=== PATIENT | female | born 1965 | race Caucasian/White ===

== ENCOUNTER → 2024-03-30 05:54 | Day surgery (SDC) | payer OTHER, SELFPAY | LOC: GI 05:54 | PROVIDERS: ATTENDING PHYSICIAN Internal Medicine Gastroenterology | DX: Z12.11 Encounter for screening for malignant neoplasm of colon (principal); K62.1 Rectal polyp; R63.5 Abnormal weight gain | CPT/HCPCS: 45385; 45380; 88305 ==

== ENCOUNTER 2024-09-10 20:17 | Emergency (ER) | payer OTHER, SELFPAY ==
[2024-09-10] VITALS (11 sets, daily range): BP systolic 158–221; BP diastolic 69–126; BMI 25.1
--- NOTE | 2024-09-10 21:31 | ED.GENMED ---
History of Present Illness
General
Chief Complaint: Blood Pressure Problem
Source: patient
Exam Limitations: none
Time Seen by Provider: 09/10/24 21:04
History of Present Illness
History of Present Illness:
This is a 59 year old female that comes in with c/o headache and hypertension. State that she has had a headache for the past 3-4 days. State that she checked her BP at home and it was 188/70-90's. States that tonight she had a headache across her
forehead and her BP was again elevated. State that at 7:30pm tonight it was 201/91. States that she was on the Treadmill tonight. States that for the past 2 years she has had this left sided chest discomfort that comes and goes. States that this
cam back in the summer and she had an US that was normal. States that tonight her jaw hurt with the Headache and high BP so she came in. Denies any fever, chills, chest pain, SOB, abd pain, nausea, vomiting, diarrhea, dizziness, urinary burning.
Past History
Past History
ED Past Medical History: HTN and Hypercholesterolemia
ED Past Surgical History: Appendectomy
Social History
Tobacco: Non-smoker
Alcohol: None
Personal:
Living: with family
Employment: Employed
Review of Systems
Review of Systems
All Other Systems: ROS reviewed and negative except as documented in HPI and ROS
Constitutional: Reports no symptoms; Denies fever or chills
EENT: Reports no symptoms
Respiratory: Reports no symptoms; Denies cough or trouble breathing
Cardiac: Reports no symptoms; Denies chest pain
ABD/GI: Reports no symptoms; Denies abdominal pain, nausea, vomiting or diarrhea
: Reports no symptoms
Musculoskeletal: Reports no symptoms
Skin: Reports no symptoms
Neurological: Reports headache; Denies dizzy
Psychiatric: Reports no symptoms
Phy Exam
General Physical Exam
General Presentation: well appearing and no apparent distress
General age: appears stated age
General Skin: warm and dry
General Habitus: normal
General Mental: alert
General Hydration: dry mucous membranes
ENT Exam
ENT Exam: TM's normal, pharynx normal and neck supple
Eye Exam
Eye Exam: EOMI
Cardiovascular Exam
Cardiovascular Exam: no edema, no murmur, normal peripheral pulses and tachycardia
Pulmonary Exam
Pulmonary Exam: lungs clear, no respiratory distress, no rales, chest non tender, no crackles, no rhonchi, no wheezing and no cough
Gastrointestinal Exam
Gastrointestinal Exam: normal bowel sounds, non tender, soft, no organomegaly, no pulsatile mass and non distended
Musculoskeletal Exam
Musculoskeletal Exam: full ROM and no edema
Skin Exam
Skin Exam: normal color, warm/dry, no rash and no petechia
Psychiatric Exam
Psychiatric Exam: normal mood/affect
Course
Orders/Labs/Results
Orders:
Orders
09/10/24 20:25
ECG [Electrocardiogram (*1)] Urgent
Reason for Study: Other
Other Reason for Exam: jaw pain
EKG- Treatment ONCE
09/10/24 20:[address] [CT Head W/o Iv Contrast] Urgent
Comment:
Reason For Exam: Headache,jaw pain and L chest pain.
09/10/24 21:30
Acetaminophen [Tylenol] 1,000 mg PO NOW STA
HydrALAZINE [Apresoline] 5 mg IV NOW STA
Lisinopril [Zestril] 5 mg PO NOW STA
09/10/24 21:31
Complete Blood Count/With Diff Urgent
Comprehensive Metabolic Panel Urgent
Troponin I Urgent
Abnormal Lab Results
09/10/24
21:31
RBC 4.07 L 10^6/uL
(4.20-5.40)
Hct 36.4 L %
(37.0-47.0)
MPV 10.5 H fL
(7.4-10.4)
BUN 29 H mg/dl
(7-17)
Glucose 209 H mg/dl
(70-99)
ALT 43 H U/L
(0-35)
Alkaline Phosphatase 37 L U/L
(38-126)
09/10/24 21:31
09/10/24 21:31
CBC normal
Vital Signs
Initial and Last Documented VS:
Initial Vital Signs
Temp Pulse Resp BP Pulse Ox
98.5 F 112 16 218/118 99
09/10/24 20:21 09/10/24 20:21 09/10/24 20:21 09/10/24 20:21 09/10/24 20:21
Last Documented Vital Signs
Temp Pulse Resp BP Pulse Ox
98.5 F 94 11 178/82 97
09/10/24 20:21 09/10/24 22:45 09/10/24 22:45 09/10/24 22:40 09/10/24 22:45
MDM/Problems Addressed
Differential Diagnosis Includes:
Hypertension. Headache.
MDM/Problems Addressed:
This is a 59 year old female that comes in with c/o headache and Hypertension.
Will check labs, CT head and medicate for Hypertension.
Back into see patient. Patient states that she still has a headache but it has moved to the temporal area. Explained that her BP has come down to 173/78. Explained that it is not advised to drop the BP to fast. Will place patient on Lisinopril
daily. Patient to follow up with the family doctor. Use Tylenol 1000mg every 6 hours for pain and can alternate with Ibuprofen 600mg every 6 hours. Patient to return with any concerns.
Chronic conditions affecting care: HTN
Acute Exacerbation and/or Progression of Chronic Illness: HTN
*Radiology
Radiology exam reviewed: radiology read reviewed (CT head-NOrmal)
*Pulse Oximetry
Patient hypoxic: no
*EKG
Interpreted by ED Provider?: Yes
Heart Rate: 113
Rate: tachycardiac
Rhythm: sinus
[place]: normal axis
Interval: normal interval
QRS Pattern: normal QRS
Ischemia: no ischemia
*Industrial Relations Worker Interpretation
Rate: tachycardiac
Heart Rate: 111
Rhythm: sinus tachycardia
*Critical Care Note
Total Time (30-74mins, 75-104mins- exclusive of procedures): Not Applicable
ED Attending Note
-
Portions of this chart may have been created with voice recognition software.� Occasional wrong word or��sound alike� substitutions may have occurred due to the inherent limitations of voice recognition software.
Discharge Plan
Departure
Patient Disposition: Home (Routine Discharge)
Date of Disposition: 09/10/24
Time of Disposition: 23:20
Patient with high blood pressure during this ER visit?: Yes
Condition: Good
Covid-19: Not Applicable
Discharge Problem:
Hypertension, Headache
Instructions: High Blood Pressure (DC), Headaches in adults, BLOOD PRESSURE
Prescriptions:
New
lisinopril 10 mg tablet
10 mg PO DAILY Qty: 30 0RF
Referrals:
Nickolas Farias, [Family Provider] - Follow up in 2-3 days
Activity Restrictions/Additional Instructions:
As discussed, your blood work shows Dehydration. Please increase your water intake to 8-8oz glasses daily. Your blood sugar is elevated and this needs to be recheck by your family doctor. Your CT of the head is normal. You have been started on
Lisinopril for Hypertension. A prescription has been sent to your pharmacy. Please take as directed. Follow up with the family doctor in the next 2-3 days for recheck. Please take your blood pressure in the morning and then again at night. Please
sit for 5 min with feet flat on the floor and arm level with the heart before taking your blood pressure. You may use Tylenol 1000mg every 6 hours for headache pain. IF YOU HAVE ANY OTHER CONCERNS PLEASE RETURN TO THE EMERGENCY ROOM
Interventions
Interventions:
*Risk Screen - Suicide Last Done: 09/10/24 20:21
*General Assessment Last Done: 09/10/24 20:21
*Neglect/Abuse Screening Last Done: 09/10/24 20:21
ED- Fall Risk Assessment Last Done: 09/10/24 20:21
*ED COVID-19 Vaccine History Last Done: 09/10/24 20:21
ED- Cardiac Assessment Last Done: 09/10/24 21:31
ED- Neurological Assessment Last Done: 09/10/24 21:31
ED- Pulmonary Assessment Last Done: 09/10/24 21:31
Discharge Date and Time
Print Language: PERUVIAN
[2024-09-10] MEDS: ZESTRIL 5 MG PO (21:35)
[2024-09-10] MEDS: APRESOLINE 5 MG IV (21:36)
[2024-09-10] MEDS: TYLENOL 1000 MG PO (21:36)
[2024-09-10 21:43] LABS: % Basophils 0.3 % (0-2); % Eosinophils 0.5 % (0-6); % Immature Granulocytes 0.3 % (0-0.5); % Lymphocytes 27.6 % (20.5-51.1); % Monocytes 6.9 % (1.7-9.3); % Neutrophils 64.4 % (42.2-75.2); Absolute Lymphocytes 1.7 10^3/uL (1.2-3.4); Absolute Monocytes 0.4 10^3/uL (0.1-0.6); Hematocrit 36.4 % (37.0-47.0); Mean Corpuscular Hgb 29.5 pg (27.0-31.0); Mean Corpuscular Volume 89.4 fL (81.0-99.0); Mean Platelet Volume 10.5 fL (7.4-10.4); Nucleated Red Blood Cells % 0 %; Platelet Count 209 10^3/uL (130-400); Red Blood Cell Count 4.07 10^6/uL (4.20-5.40); Red Cell Dist. Width 12.6 % (11.5-14.5); White Blood Cell Count 6.2 10^3/uL (4.8-10.8)
[2024-09-10 22:07] LABS: ALT (SGPT) 43 U/L (0-35); AST (SGOT) 33 U/L (14-36); Albumin 4.6 g/dl (3.5-5.0); Alkaline Phosphatase 37 U/L (38-126); Blood Urea Nitrogen 29 mg/dl (7-17); Calcium 9.2 mg/dl (8.4-10.2); Carbon Dioxide 28 mmol/L (22-30); Chloride 103 mmol/L (98-107); Estimated Creatinine Clearance 76 ml/min; Glucose 209 mg/dl (70-99); Potassium 3.6 mmol/L (3.5-5.1); Sodium 140 mmol/L (135-145); Total Bilirubin 0.2 mg/dl (0.2-1.3); Total Protein 7.1 g/dl (6.3-8.2); Troponin I < 0.012 ng/ml; eGFR > 60.00
== END 2024-09-10 23:50 | disposition home or self-care (01) ==
LOC: EMR 20:17
PROVIDERS: Emergency Medicine; EMERGENCY PHYSICIAN Emergency Medicine; FAMILY PHYSICIAN Family Medicine
DX: R51.9 Headache, unspecified (principal); R68.84 Jaw pain; I10 Essential (primary) hypertension; R07.89 Other chest pain; E78.00 Pure hypercholesterolemia, unspecified; Z88.2 Allergy status to sulfonamides
CPT/HCPCS: 99284; 96374; 70450; 80053; 84484; 85025; 93005

== ENCOUNTER 2024-09-13 21:10 | Emergency (ER) | payer OTHER, SELFPAY ==
[2024-09-13 21:19] VITALS: BP 183/108
[2024-09-13 23:38] VITALS: BP 198/105
--- NOTE | 2024-09-14 00:53 | ED.GENMED ---
History of Present Illness
General
Chief Complaint: Blood Pressure Problem
Source: patient
Exam Limitations: none
Time Seen by Provider: 09/14/24 00:19
History of Present Illness
History of Present Illness:
This is a 59 year old female that comes in with c/o hypertension. Patient was seen here on 09/10/24 with c/o hypertension and started on Lisinopril 10mg. State that she went to see the PCP the next days. Patient had also had a headache that moved
into the temporal area so further blood work was done that she says was normal and she was started on a steroid. States that she has been taking Tylenol 1000mg during the day. States that today she was at a and it was a long day. Tonight she
checked her BP and it was 200/ something and she got upset. States that she took a Second Lisinopril 10mg tonight. Denies any fever, chills, chest pain, SOB, abd pain, nausea, vomiting, diarrhea, dizziness, urinary burning.
Past History
Past History
ED Past Medical History: HTN and Hypercholesterolemia; Negative Asthma or NIDDM
ED Past Surgical History: Appendectomy
Social History
Tobacco: Non-smoker
Alcohol: None
Personal:
Living: with family
Employment: Employed
Review of Systems
Review of Systems
All Other Systems: ROS reviewed and negative except as documented in HPI and ROS
Constitutional: Reports no symptoms; Denies fever or chills
EENT: Reports no symptoms
Respiratory: Reports no symptoms; Denies cough or trouble breathing
Cardiac: Reports no symptoms; Denies chest pain
ABD/GI: Reports no symptoms; Denies abdominal pain, nausea, vomiting or diarrhea
: Reports no symptoms; Denies dysuria, frequency or urgency
Musculoskeletal: Reports no symptoms
Skin: Reports no symptoms
Neurological: Reports headache; Denies dizzy
Psychiatric: Reports no symptoms
Phy Exam
General Physical Exam
General Presentation: well appearing and no apparent distress
General age: appears stated age
General Skin: warm and dry
General Habitus: normal
General Mental: alert
General Hydration: appears well hydrated
ENT Exam
ENT Exam: TM's normal, pharynx normal and neck supple
Eye Exam
Eye Exam: EOMI
Cardiovascular Exam
Cardiovascular Exam: regular rate/rhythm, no edema, no murmur and normal peripheral pulses
Pulmonary Exam
Pulmonary Exam: lungs clear, no respiratory distress, no rales, chest non tender, no crackles, no rhonchi, no wheezing and no cough
Gastrointestinal Exam
Gastrointestinal Exam: normal bowel sounds, non tender, soft, no organomegaly, no pulsatile mass and non distended
Musculoskeletal Exam
Musculoskeletal Exam: full ROM and no edema
Skin Exam
Skin Exam: normal color, warm/dry, no rash and no petechia
Course
Orders/Labs/Results
Orders:
Orders
09/14/24 00:53
HydrALAZINE [Apresoline] 5 mg IV NOW STA
09/14/24 01:12
Complete Blood Count/With Diff Urgent
Comprehensive Metabolic Panel Urgent
09/14/24 01:16
Lorazepam [Ativan] 1 mg .ROUTE .STK-MED ONE
09/14/24 01:18
Lorazepam [Ativan] 1 mg PO NOW STA
Abnormal Lab Results
09/14/24
01:12
Absolute Lymphs (auto) 0.8 L 10^3/uL
(1.2-3.4)
Neutrophils % 85.5 H %
(42.2-75.2)
Lymphocytes % 12.2 L %
(20.5-51.1)
Monocytes % 0.9 L %
(1.7-9.3)
BUN 18 H mg/dl
(7-17)
Glucose 158 H mg/dl
(70-99)
Total Bilirubin 0.1 L mg/dl
(0.2-1.3)
ALT 44 H U/L
(0-35)
09/14/24 01:12
09/14/24 01:12
Very slight Dehydration. Hyperglycemia. Total luigi slightly low. ALT mildly elevated.
Vital Signs
Initial and Last Documented VS:
Initial Vital Signs
Temp Pulse Resp BP Pulse Ox
98.7 F 99 16 183/108 97
09/13/24 21:19 09/13/24 21:19 09/13/24 21:19 09/13/24 21:19 09/13/24 21:19
Last Documented Vital Signs
Temp Pulse Resp BP Pulse Ox
98.7 F 99 16 171/87 97
09/13/24 21:19 09/13/24 21:19 09/13/24 21:19 09/14/24 02:09 09/13/24 21:19
MDM/Problems Addressed
Differential Diagnosis Includes:
HYpertension,
MDM/Problems Addressed:
This is a 59 year old female that comes in with c/o hypertension. Patient was seen here on 09/10 with the same complaint and headache. Patient was started on Lisinopril 10m daily at that time. Today patient was a t all day and it was a long
day. states that her anxiety has been up.
Will check labs and medicate for Hypertension.
Nursing went to give patient her Hydralazine and her BP was 161/81. So this was held. patent is very anxious. Will give Ativan 1mg now and recheck.
Back into see patient. Patient states that she feels about the same but just tired. States that she is ready to go home. Encouraged patient to call the PCP tomorrow and set up another appointment to recheck her BP. He may wish to add a second
Medication but this will be up to home. Patient to return with any concerns.
Chronic conditions affecting care: HTN
Acute Exacerbation and/or Progression of Chronic Illness: HTN
*Pulse Oximetry
Patient hypoxic: no
*EKG
Interpreted by ED Provider?: NA
Rate: EKG- N/A
*Critical Care Note
Total Time (30-74mins, 75-104mins- exclusive of procedures): Not Applicable
ED Attending Note
-
Portions of this chart may have been created with voice recognition software.� Occasional wrong word or��sound alike� substitutions may have occurred due to the inherent limitations of voice recognition software.
Discharge Plan
Departure
Patient Disposition: Home (Routine Discharge)
Date of Disposition: 09/14/24
Time of Disposition: 02:21
Patient with high blood pressure during this ER visit?: Yes
Condition: Good
Covid-19: Not Applicable
Discharge Problem:
Hypertension
Instructions: High Blood Pressure (DC), BLOOD PRESSURE
Prescriptions:
No Action
lisinopril 10 mg tablet
10 mg PO DAILY Qty: 30 0RF
Referrals:
Nickolas Farias, DO [Family Provider] - Tomorrow
Activity Restrictions/Additional Instructions:
As discussed, your blood work shows very slight Dehydration and your blood sugar is elevated. Your ALS which is part of your liver function is also slightly elevated. Please increased your water intake to 8-8oz glasses daily. Follow up with the
family doctor tomorrow for recheck of your blood pressure. He may wish to add a second medication or increase the Lisinopril dosage. IF YOU HAVE ANY OTHER CONCERNS PLEASE RETURN TO THE EMERGENCY ROOM.
Interventions
Interventions:
*Risk Screen - Suicide Last Done: 09/13/24 21:19
*General Assessment Last Done: 09/13/24 21:19
*Neglect/Abuse Screening Last Done: 09/13/24 21:19
*ED COVID-19 Vaccine History Last Done: 09/13/24 21:19
ED- Cardiac Assessment Last Done: 09/14/24 02:10
ED- Neurological Assessment Last Done: 09/14/24 02:10
ED- Pulmonary Assessment Last Done: 09/14/24 02:10
Discharge Date and Time
Print Language: FRENCH
[2024-09-14 01:13] VITALS: BP 161/81
[2024-09-14 01:18] LABS: % Basophils 0.4 % (0-2); % Eosinophils 0.6 % (0-6); % Immature Granulocytes 0.4 % (0-0.5); % Lymphocytes 12.2 % (20.5-51.1); % Monocytes 0.9 % (1.7-9.3); % Neutrophils 85.5 % (42.2-75.2); Absolute Lymphocytes 0.8 10^3/uL (1.2-3.4); Absolute Monocytes 0.1 10^3/uL (0.1-0.6); Absolute Neutrophils 5.8 10^3/uL (1.4-6.5); Hematocrit 37.9 % (37.0-47.0); Hemoglobin 12.8 g/dL (12.0-16.0); Mean Corp Hgb Conc. 33.8 g/dL (33.0-37.0); Mean Corpuscular Hgb 29.8 pg (27.0-31.0); Mean Corpuscular Volume 88.3 fL (81.0-99.0); Mean Platelet Volume 10.3 fL (7.4-10.4); Nucleated Red Blood Cells % 0 %; Platelet Count 240 10^3/uL (130-400); Red Blood Cell Count 4.29 10^6/uL (4.20-5.40); Red Cell Dist. Width 12.7 % (11.5-14.5); White Blood Cell Count 6.7 10^3/uL (4.8-10.8)
[2024-09-14] MEDS: ATIVAN 1 MG PO (01:19)
[2024-09-14 01:34] LABS: ALT (SGPT) 44 U/L (0-35); AST (SGOT) 33 U/L (14-36); Alkaline Phosphatase 42 U/L (38-126); Blood Urea Nitrogen 18 mg/dl (7-17); Calcium 9.8 mg/dl (8.4-10.2); Carbon Dioxide 28 mmol/L (22-30); Chloride 103 mmol/L (98-107); Glucose 158 mg/dl (70-99); Potassium 4.2 mmol/L (3.5-5.1); Sodium 141 mmol/L (135-145); Total Bilirubin 0.1 mg/dl (0.2-1.3); Total Protein 7.9 g/dl (6.3-8.2); eGFR > 60.00
[2024-09-14 02:09] VITALS: BP 171/87
== END 2024-09-14 02:37 | disposition home or self-care (01) ==
LOC: EMR 21:10
PROVIDERS: Clinical Nurse Specialist Family Health; EMERGENCY PHYSICIAN Student in an Organized Health Care Education/Training Program; FAMILY PHYSICIAN Family Medicine
DX: I10 Essential (primary) hypertension (principal); R51.9 Headache, unspecified; E86.0 Dehydration; R73.9 Hyperglycemia, unspecified; E78.00 Pure hypercholesterolemia, unspecified; Z88.2 Allergy status to sulfonamides
CPT/HCPCS: 99283; 80053; 85025

== ENCOUNTER → 2024-10-03 12:34 | Outpatient (REF) | payer OTHER, SELFPAY | LOC: PAVMRI 12:34 | PROVIDERS: ATTENDING PHYSICIAN Family Medicine; FAMILY PHYSICIAN Family Medicine | DX: R51.9 Headache, unspecified (principal) | CPT/HCPCS: 70551 ==

== ENCOUNTER → 2024-10-23 08:28 | Outpatient (REF) | payer OTHER, SELFPAY | LOC: MRI 3T 08:28 | PROVIDERS: ATTENDING PHYSICIAN Family Medicine | DX: R51.9 Headache, unspecified (principal); E23.6 Other disorders of pituitary gland | CPT/HCPCS: 70553; A9575 ==

== ENCOUNTER 2024-11-29 12:56 | Emergency (ER) | payer OTHER, SELFPAY ==
[2024-11-29] VITALS (7 sets, daily range): BP systolic 126–196; BP diastolic 60–120; BMI 25.2
--- NOTE | 2024-11-29 13:25 | ED.GENMED ---
History of Present Illness
General
Chief Complaint: Blood Pressure Problem
Source: patient
Exam Limitations: none
Time Seen by Provider: 11/29/24 13:25
Nursing documentation reviewed up to this point in time: agreed with
History of Present Illness
History of Present Illness:
59 yo female presents to the emergency department due to head pressure and high blood pressure. She noted her blood pressure was 140 systolic, then 160, and then 190, so she came to the emergency department. She has had head pressure for the past
day. She has a known pituitary adenoma that is being followed by neurosurgery. She also saw endocrinology, who found no endocrine disorders.
Past History
Past History
ED Past Medical History: HTN and Hypercholesterolemia; Negative Asthma or NIDDM
ED Past Surgical History: Appendectomy
Social History
Tobacco: Non-smoker
Alcohol: None
Personal:
Living: with family
Employment: Employed
Review of Systems
Review of Systems
Allergies reviewed?: Yes
All Other Systems: Not applicable
Constitutional: Reports no symptoms
EENT: Reports no symptoms
Respiratory: Reports no symptoms; Denies trouble breathing
Cardiac: Reports no symptoms; Denies chest pain
ABD/GI: Reports no symptoms
: Reports no symptoms
Musculoskeletal: Reports no symptoms
Skin: Reports no symptoms
Neurological: Reports headache
Endocrine: Reports no symptoms
Hematologic/Lymphatic: Reports no symptoms
Psychiatric: Reports no symptoms
Phy Exam
Physical Exam
Physical Exam:
Physical Exam
General: no apparent distress, not acutely ill, repeat blood pressure 151/70
Neck: supple. no meningeal signs. normal posterior pharynx
Heart: s1/s2 regular rate and rhythm, no murmur. equal radial
pulses.
HEENT: Pupils equal round reactive to light, EOMI
Lungs: no acute respiratory distress. clear bilaterally
Abdomen: normal bowel sounds. not tender. no CVAT
Neuro: alert and oriented. no focal neurological deficits cranial nerves II through XII intact
Skin: no rash
Psychiatric: well kept. interactive and cooperative
Extremities: no edema. no calf tenderness. negative homans. good distal pulses
Course
Orders/Labs/Results
Orders:
Orders
11/29/24 12:58
EKG [Electrocardiogram (*1)] Urgent
Reason for Study: Hypertension, Benign
EKG- Treatment ONCE
11/29/24 13:47
Cardiac Monitoring- Treatment ONCE
IV Insert/Care/Rem.- Treatment PRN
Pulse Ox/cont/shift [RESP] Stat
Quantity: 1
11/29/24 13:59
Complete Blood Count/With Diff Urgent
Comprehensive Metabolic Panel Urgent
Abnormal Lab Results
11/29/24
13:59
RBC 3.54 L 10^6/uL
(4.20-5.40)
Hgb 10.7 L g/dL
(12.0-16.0)
Hct 31.2 L %
(37.0-47.0)
MPV 10.7 H fL
(7.4-10.4)
Absolute Lymphs (auto) 1.1 L 10^3/uL
(1.2-3.4)
Lymphocytes % 18.5 L %
(20.5-51.1)
Potassium 3.4 L mmol/L
(3.5-5.1)
Chloride 94 L mmol/L
(98-107)
BUN 25 H mg/dl
(7-17)
Glucose 208 H mg/dl
(70-99)
11/29/24 13:59
11/29/24 13:59
Vital Signs
Initial and Last Documented VS:
Initial Vital Signs
Temp Pulse Resp BP Pulse Ox
98.3 F 120 16 195/120 98
11/29/24 13:02 11/29/24 13:02 11/29/24 13:02 11/29/24 13:02 11/29/24 13:02
Last Documented Vital Signs
Temp Pulse Resp BP Pulse Ox
98.4 F 78 11 126/60 98
11/29/24 13:25 11/29/24 15:15 11/29/24 15:15 11/29/24 15:00 11/29/24 15:15
MDM/Problems Addressed
Differential Diagnosis Includes:
CVA, intracranial hemorrhage, malignant hypertension
MDM/Problems Addressed:
59-year-old female with headache, improving with observation. Blood pressure initially elevated, improved with observation. Doubt intracranial hemorrhage or CVA. Stable for discharge.
Chronic conditions affecting care: HTN
Acute Exacerbation and/or Progression of Chronic Illness: HTN
*Pulse Oximetry
Patient hypoxic: no
*EKG
Interpreted by ED Provider?: Yes
EKG Intrepretation Date: 11/29/24
EKG Intrepretation Time: 13:00
Interpretation: abnormal
Comparison EKG: no changes
Heart Rate: 114
Rate: tachycardiac
Rhythm: sinus tachycardia
[place]: normal axis
Interval: normal interval
QRS Pattern: normal QRS
Ischemia: no ischemia
*Packing Room Inspector Interpretation
Rate: normal
Interpretation: normal
Heart Rate: 88
Rhythm: sinus
*Critical Care Note
Total Time (30-74mins, 75-104mins- exclusive of procedures): Not Applicable
Patient Management
Social determinants of health affecting care: Living situation and Strong social support
Escalation/DeEscalation of care consider admission/obs:
Admit not indicated
ED Attending Note
-
Portions of this chart may have been created with voice recognition software.� Occasional wrong word or��sound alike� substitutions may have occurred due to the inherent limitations of voice recognition software.
Discharge Plan
Departure
Patient Disposition: Home (Routine Discharge)
Date of Disposition: 11/29/24
Time of Disposition: 15:20
Patient with high blood pressure during this ER visit?: Yes
Condition: Good
Discharge Problem:
Headache
Instructions: Headaches in adults, BLOOD PRESSURE
Prescriptions:
No Action
lisinopril 10 mg tablet
10 mg PO DAILY Qty: 30 0RF
Referrals:
Nickolas Farias, DO [Family Provider] - Keep scheduled appt
Interventions
Interventions:
*Risk Screen - Suicide Last Done: 11/29/24 13:02
*General Assessment Last Done: 11/29/24 13:25
*Neglect/Abuse Screening Last Done: 11/29/24 13:02
*ED- Fall Risk Assessment Last Done: 11/29/24 13:25
*ED COVID-19 Vaccine History Last Done: 11/29/24 14:00
*Nursing Disposition Last Done: 11/29/24 15:30
ED- Cardiac Assessment Last Done: 11/29/24 14:09
ED- Neurological Assessment Last Done: 11/29/24 14:09
ED- Pulmonary Assessment Last Done: 11/29/24 14:09
Discharge Date and Time
Discharge Date/Time: 11/29/24 15:39
Print Language: FILIPINO
[2024-11-29 14:26] LABS: ALT (SGPT) 35 U/L (0-35); AST (SGOT) 30 U/L (14-36); Albumin 4.7 g/dl (3.5-5.0); Alkaline Phosphatase 40 U/L (38-126); Blood Urea Nitrogen 25 mg/dl (7-17); Calcium 10.2 mg/dl (8.4-10.2); Carbon Dioxide 30 mmol/L (22-30); Chloride 94 mmol/L (98-107); Estimated Creatinine Clearance 53 ml/min; Glucose 208 mg/dl (70-99); Potassium 3.4 mmol/L (3.5-5.1); Sodium 135 mmol/L (135-145); Total Bilirubin 0.4 mg/dl (0.2-1.3); Total Protein 7.1 g/dl (6.3-8.2); eGFR > 60.00
[2024-11-29 14:28] LABS: % Basophils 0.7 % (0-2); % Eosinophils 0.5 % (0-6); % Immature Granulocytes 0.3 % (0-0.5); % Lymphocytes 18.5 % (20.5-51.1); % Monocytes 6.5 % (1.7-9.3); % Neutrophils 73.5 % (42.2-75.2); Absolute Lymphocytes 1.1 10^3/uL (1.2-3.4); Absolute Monocytes 0.4 10^3/uL (0.1-0.6); Absolute Neutrophils 4.2 10^3/uL (1.4-6.5); Hematocrit 31.2 % (37.0-47.0); Hemoglobin 10.7 g/dL (12.0-16.0); Mean Corp Hgb Conc. 34.3 g/dL (33.0-37.0); Mean Corpuscular Hgb 30.2 pg (27.0-31.0); Mean Corpuscular Volume 88.1 fL (81.0-99.0); Mean Platelet Volume 10.7 fL (7.4-10.4); Nucleated Red Blood Cells % 0 %; Platelet Count 198 10^3/uL (130-400); Red Blood Cell Count 3.54 10^6/uL (4.20-5.40); Red Cell Dist. Width 12.3 % (11.5-14.5); White Blood Cell Count 5.7 10^3/uL (4.8-10.8)
== END 2024-11-29 15:39 | disposition home or self-care (01) ==
LOC: EMR 12:56
PROVIDERS: EMERGENCY PHYSICIAN Emergency Medicine; FAMILY PHYSICIAN Family Medicine
DX: R51.9 Headache, unspecified (principal); I10 Essential (primary) hypertension; E78.00 Pure hypercholesterolemia, unspecified; D35.2 Benign neoplasm of pituitary gland
CPT/HCPCS: 99284; 80053; 85025; 93005

== ENCOUNTER → 2025-01-29 12:02 | Outpatient (REF) | payer OTHER, SELFPAY | LOC: HWRAD 12:02 | PROVIDERS: ATTENDING PHYSICIAN Physician Assistant Medical; FAMILY PHYSICIAN Family Medicine | DX: M54.2 Cervicalgia (principal) | CPT/HCPCS: 72050 ==

== ENCOUNTER → 2025-02-23 06:42 | Outpatient (REF) | payer OTHER, SELFPAY | LOC: MRI 3T 06:42 | PROVIDERS: ATTENDING PHYSICIAN Physician Assistant Medical; FAMILY PHYSICIAN Family Medicine | DX: M54.12 Radiculopathy, cervical region (principal) | CPT/HCPCS: 72141 ==

== ENCOUNTER → 2025-03-01 10:57 | Outpatient (REF) | payer OTHER, SELFPAY | LOC: PAVMRI 10:57 | PROVIDERS: ATTENDING PHYSICIAN Neurological Surgery; FAMILY PHYSICIAN Family Medicine | DX: D35.2 Benign neoplasm of pituitary gland (principal) | CPT/HCPCS: 70553; A9575 ==

== ENCOUNTER → 2025-03-13 11:02 | Outpatient (REF) | payer OTHER, SELFPAY | LOC: HWRAD 11:02 | PROVIDERS: ATTENDING PHYSICIAN Neurological Surgery; FAMILY PHYSICIAN Family Medicine; REFERRING PHYSICIAN Physician Assistant Medical | DX: R51.9 Headache, unspecified (principal); M47.892 Other spondylosis, cervical region | CPT/HCPCS: 72052 ==

== ENCOUNTER → 2025-07-20 07:55 | Outpatient (REF) | payer OTHER, SELFPAY | LOC: RCS 07:55 | PROVIDERS: ATTENDING PHYSICIAN Nurse Practitioner Family | DX: R01.1 Cardiac murmur, unspecified (principal) | CPT/HCPCS: 93306 ==